=== PATIENT | male | born 1990 | race Caucasian/White ===

== ENCOUNTER 2020-03-24 14:06 | Day surgery (SDC) | payer OTHER ==
[~2020-03-24] VITALS: Ht 181.6 cm; Wt 93.6 kg
[2020-03-24] MEDS ORDERED: CHLORHEXIDINE 15 ML UDC MM STA (14:52)
[2020-03-24] MEDS ORDERED: LACTATED RINGERS 1,000 ML IV ONE (14:52)
[2020-03-24 14:54] VITALS: BP 147/72
[2020-03-24] MEDS ORDERED: PLEASE ENTER HEIGHT AND WEIGHT MC SCH (15:00)
[2020-03-24] MEDS ORDERED: No meds per pt (15:04)
[2020-03-24] MEDS ORDERED: FENTANYL PF 250 MCG/5ML ONE (16:13)
[2020-03-24] MEDS ORDERED: MIDAZOLAM 1 MG/ML, 2ML ONE (16:13)
[2020-03-24] MEDS ORDERED: CEFAZOLIN 1,000 MG ONE (16:17)
[2020-03-24] MEDS ORDERED: DIAZEPAM 5 MG/ML, 2ML IVPush PRN (17:00)
[2020-03-24] MEDS ORDERED: ACETAMINOPHEN 325 MG TABLET PO PRN (17:00)
[2020-03-24] MEDS ORDERED: DIPHENHYDRAMINE 50 MG/ML, 1ML IVPush PRN (17:00)
[2020-03-24] MEDS ORDERED: OXYcodone 5 MG/5 ML ORAL.SOL UDC PO PRN (17:00)
[2020-03-24] MEDS ORDERED: FENTANYL PF 100 MCG/2ML IV PRN (17:00)
[2020-03-24] MEDS ORDERED: ONDANSETRON 2MG/ML, 2ML IVPush PRN (17:00)
[2020-03-24] MEDS ORDERED: MEPERIDINE/PF 25MG/0.5ML IVPush PRN (17:00)
[2020-03-24] MEDS ORDERED: PROMETHAZINE 25 MG/ML, 1ML IVPush PRN (17:00)
[2020-03-24] MEDS ORDERED: HYDROmorphone 1 MG/ML, 1ML INJ IVPush PRN (17:00)
[2020-03-24] MEDS ORDERED: FENTANYL PF 100 MCG/2ML ONE ×2 (18:10→18:50)
[2020-03-24] MEDS ORDERED: OXYcodone 5 MG/5 ML ORAL.SOL UDC ONE (18:50)
[2020-03-24] MEDS ORDERED: ACETAMINOPHEN 650 MG/20.3 ML UDC ONE (18:50)
[2020-03-24] MEDS ORDERED: OXYcodone/APAP 5/325MG TABLET PO PRN (20:30)
[2020-03-24] MEDS ORDERED: KETOROLAC 30 MG/1 ML IV SCH (20:30)
[2020-03-24] MEDS ORDERED: morphine SULFATE 10 MG/ML, 1ML IV PRN (20:30)
[2020-03-24] MEDS ORDERED: ONDANSETRON 2MG/ML, 2ML IV PRN (20:30)
[2020-03-24] MEDS ORDERED: ONDANSETRON ODT 4 MG ONE (20:35)
[2020-03-24] MEDS ORDERED: ONDANSETRON ODT 4 MG PO PRN (21:00)
== END 2020-03-24 21:00 | disposition home or self-care (01) ==
LOC: OR 14:06 → 4NE 19:34 → OR 21:00
PROVIDERS: ATTEND Orthopaedic Surgery
DX: S92.352A Displaced fracture of fifth metatarsal bone, left foot, initial encounter for closed fracture (principal); Z11.59 Encounter for screening for other viral diseases; S93.325A Dislocation of tarsometatarsal joint of left foot, initial encounter; V86.56XA Driver of dirt bike or motor/cross bike injured in nontraffic accident, initial encounter; Y93.55 Activity, bike riding; Y92.89 Other specified places as the place of occurrence of the external cause; Y99.8 Other external cause status
CPT/HCPCS: 28485; 28615; 64445; 73630; 87635; C1713; J0690; J2250; J3010; J7120; Q0162; G0378